=== PATIENT | female | born 1955 | race Caucasian/White ===

== ENCOUNTER → 2023-02-06 | Outpatient (CLI) | payer MEDICARE, OTHER ==
[~2023-02-06] VITALS: Ht 167.6 cm; Wt 72.7 kg
[~2023-02-06] MED LIST: LIDOCAINE 1% INJ 10 ML VIAL INJ ONE; LIDOCAINE 1% INJ 10 ML VIAL ONE
--- NOTE | 2023-02-06 12:44 | Diagnostic Imaging Report ---
INDICATION: Right breast nodule. Patient is status post ultrasound-guided core biopsy. FINDINGS: Unilateral right 2D CC and ML mammography was performed after the patient underwent ultrasound-guided right breast biopsy. There is a marker clip in the upper and outer right breast at posterior depth adjacent to the area of density noted previously. IMPRESSION: Marker clip placement following ultrasound-guided right breast biopsy. Dictated by: Dictated on workstation # [id number]
--- NOTE | 2023-02-06 12:58 | Diagnostic Imaging Report ---
INDICATION: Right breast nodule. Patient presents for ultrasound guided core biopsy. FINDINGS: The patient was brought to the ultrasound suite and placed on the table in the supine position. Ultrasound imaging of the right breast was performed to evaluate for an appropriate entry site. The right breast was then prepped and draped in the usual sterile fashion. A small amount of 1% lidocaine was utilized for local anesthesia. A total of four core biopsies was obtained of the hypoechoic nodule at the 10 o'clock location of the right breast utilizing a 14-gauge Achieve needle. A marker clip was then deployed. Hemostasis was obtained using manual compression. The patient tolerated the procedure well and was sent for a post procedure mammogram in satisfactory condition. IMPRESSION: Successful ultrasound guided core biopsy of the hypoechoic nodule at the 10 o'clock location of the right breast. Pathology results are currently pending. Dictated by: Dictated on workstation # [id number]
== END ==
LOC: RAD 10:06
PROVIDERS: ATTEND Family Medicine
DX: N63.11 Unspecified lump in the right breast, upper outer quadrant (principal)
CPT/HCPCS: 19083; 77065; A4648; G0279